=== PATIENT | female | born 1985 | race Caucasian/White ===

== ENCOUNTER 2016-12-09 11:08 | Emergency (ER) | payer BC, OTHER ==
[~2016-12-09] VITALS: Ht 154.9 cm; Wt 52.2 kg
[2016-12-09 11:24] VITALS: BP 100/65
[2016-12-09] MEDS ORDERED: RABIES VACCINE /PF 2.5 UNITS IM-VACC STA (11:57)
[2016-12-09] MEDS ORDERED: RABIES IMMUNE GLOBULIN/PF 150 UNITS/ML, 2ML IM ONE (12:00)
== END 2016-12-09 14:21 ==
LOC: ED 11:59
DX: Z20.3 Contact with and (suspected) exposure to rabies (principal)
CPT/HCPCS: 90375; 90471; 90675; 96372

== ENCOUNTER → 2017-04-29 | Outpatient (CLI) | payer OTHER ==
[~2017-04-29] MED LIST: FLUO10TA PO; FLUV100T2 PO; METH20TA5 PO
== END ==
LOC: STAR 11:17
PROVIDERS: ATTEND Specialist
DX: Z02.9 Encounter for administrative examinations, unspecified (principal)

== ENCOUNTER 2017-05-06 13:38 | Day surgery (SDC) | payer OTHER ==
[~2017-05-06] VITALS: Ht 156.2 cm; Wt 50.3 kg
[~2017-05-06 13:38] MED LIST changes: +BUPIVACAINE/PF 0.25% ONE; +EPINEPHRINE 1 MG/ML, 1ML ONE
[2017-05-06] MEDS ORDERED: LACTATED RINGERS 1,000 ML IV SCH (13:52)
[2017-05-06] MEDS ORDERED: LIDOCAINE 1%, 2ML SQ PRN (14:00)
[2017-05-06 14:07] VITALS: BP 108/62
[2017-05-06 14:31] LABS: HCG UR LOT HCG706132
[2017-05-06 14:41] LABS: HCG UR OBC PASS
[2017-05-06] MEDS ORDERED: CEFAZOLIN 1,000 MG ONE ×2 (15:23)
[2017-05-06] MEDS ORDERED: MIDAZOLAM 1 MG/ML, 2ML ONE (15:23)
[2017-05-06] MEDS ORDERED: PROPOFOL 10 MG/ML, 20ML ONE (15:23)
[2017-05-06] MEDS ORDERED: FENTANYL PF 100 MCG/2ML ONE ×2 (15:23→16:27)
[2017-05-06] MEDS ORDERED: GLYCOPYRROLATE 0.2MG/1ML, 5ML ONE (15:52)
[2017-05-06] MEDS ORDERED: ROCURONIUM 10 MG/ML,10ML ONE (15:52)
[2017-05-06] MEDS ORDERED: DEXAMETHASONE 4 MG/ML, 1ML ONE ×2 (15:52)
[2017-05-06] MEDS ORDERED: NEOSTIGMINE 1 MG/ML, 10ML ONE (15:52)
[2017-05-06] MEDS ORDERED: SUCCINYLCHOLINE 20 MG/ML, 10ML ONE (15:52)
[2017-05-06] MEDS ORDERED: ONDANSETRON 2MG/ML, 2ML ONE (15:52)
[2017-05-06] MEDS ORDERED: KETOROLAC 30 MG/1 ML ONE (16:18)
[2017-05-06] MEDS ORDERED: BUPIVACAINE/PF 0.25% INFIL ONE (16:25)
[2017-05-06] MEDS ORDERED: OXYcodone 5 MG/5 ML ORAL.SOL UDC PO PRN (16:30)
[2017-05-06] MEDS ORDERED: ACETAMINOPHEN 325 MG TABLET PO PRN (16:30)
[2017-05-06] MEDS ORDERED: PROMETHAZINE 25 MG/ML, 1ML IV PRN (16:30)
[2017-05-06] MEDS ORDERED: FENTANYL PF 100 MCG/2ML IV PRN (16:30)
[2017-05-06] MEDS ORDERED: MEPERIDINE/PF 50 MG/ML ONE (16:48)
[2017-05-06] MEDS ORDERED: OXYcodone 5 MG/5 ML ORAL.SOL UDC ONE (17:02)
[2017-05-06] MEDS ORDERED: ACETAMINOPHEN 650 MG/20.3 ML UDC ONE (17:02)
== END 2017-05-06 18:45 ==
LOC: OR 13:38
PROVIDERS: ATTEND Specialist
DX: Z30.2 Encounter for sterilization (principal); K21.9 Gastro-esophageal reflux disease without esophagitis; F42.9 Obsessive-compulsive disorder, unspecified; Z98.890 Other specified postprocedural states
CPT/HCPCS: 58670; 81025; 88302; J0171; J0330; J0690; J1100; J1885; J2175; J2250; J2405; J2704; J2710; J3010; J3490; J7120